=== PATIENT | female | born 1980 | race Caucasian/White ===

== ENCOUNTER 2016-10-11 19:35 | Emergency (ER) | payer SELFPAY ==
[~2016-10-11] VITALS: Ht 167.6 cm; Wt 122.5 kg
[~2016-10-11 19:35] MED LIST: ACET325T21 PO; BACL10TA PO; FERR325C PO; HYDR25TA9 PO; IBUP-1027 PO; LISI-334 PO; NAPR500T PO; TRAM-29 PO
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
[2016-10-11] MEDS ORDERED: HYDROCODONE/APAP 5/325MG TABLET. PO ONE (20:15)
[2016-10-11] MEDS ORDERED: CLONIDINE HCL 0.1 MG TABLET PO ONE (20:15)
[2016-10-11] MEDS ORDERED: TRAM1TAB49 PO (21:38)
[2016-10-11] MEDS ORDERED: HYDR12.58 PO (21:38)
[2016-10-11 22:04] VITALS: BP 179/95
--- NOTE | 2016-10-12 09:31 | RAD ---
Left knee with patella, 4 views, 10/11/2016: History: Fall, pain No fracture is identified. On the sunrise view there is mild lateral subluxation of the patella relative to the trochlear groove. There is moderate subcutaneous edema anteriorly. IMPRESSION: 1. Mild lateral subluxation of the patella. If knee pain persists, follow-up MR scanning may be useful for further evaluation. 2. No acute bony abnormality. Note: The findings were called to personnel in the [facility] ER at 9:28 AM on 10/12/2016.
== END 2016-10-11 22:04 | disposition home or self-care (01) ==
LOC: ER 19:35
DX: S83.92XA Sprain of unspecified site of left knee, initial encounter (principal); I10 Essential (primary) hypertension; Z98.51 Tubal ligation status; W18.39XA Other fall on same level, initial encounter; Y93.89 Activity, other specified; Y92.89 Other specified places as the place of occurrence of the external cause; Y99.8 Other external cause status
CPT/HCPCS: 73564; 99284

== ENCOUNTER 2017-10-30 22:57 | Emergency (ER) | payer OTHER, SELFPAY ==
[2017-10-30 23:58] LABS: ADD MAN DIFF? NO
[2017-10-31] LABS: BASO % 0 % (0-3); EOS # 0.2 x10^3/uL (0.0-0.7); EOS % 2 % (0-3); HEMOGLOBIN 12.6 g/dL (12.0-15.5); LYMPH # 1.4 x10^3/uL (1.0-4.8); LYMPH % 15 % (24-48); MEAN CORPUSCULAR HEMOGLOBIN 26 pg (25-35); MEAN CORPUSCULAR HGB CONC 33 g/dL (31-37); MEAN CORPUSCULAR VOLUME 78 fL (79-100); MONO # 0.5 x10^3/uL (0.0-1.1); MONO % 6 % (0-9); NEUT # 6.9 x10^3uL (1.8-7.7); NEUT % 77 % (31-73); PLATELET COUNT 268 x10^3/uL (140-400); RED BLOOD COUNT 4.84 x10^6/uL (3.50-5.40); RED CELL DISTRIBUTION WIDTH 14.7 % (11.5-14.5)
[2017-10-31 00:01] LABS: BILIRUBIN,URINE NEGATIVE (NEG); CLARITY,URINE CLOUDY; COLOR,URINE YELLOW; GLUCOSE,URINE NEGATIVE (NEG); NITRITE,URINE NEGATIVE (NEG); PROTEIN,URINE NEGATIVE (NEG-TRACE); UROBILINOGEN,URINE 0.2 mg/dL (0.2 mg/dL)
[2017-10-31] MEDS: diphenhydrAMINE 50 MG/ML VIAL IVP ×2 (00:08)
[2017-10-31] MEDS: PROCHLORPERAZINE 10 MG/2 ML VIAL. IV ×2 (00:09)
[2017-10-31] MEDS: LABETALOL 20 MG/4 ML DISP.SYRIN. IVP ×2 (00:09)
[2017-10-31 00:10] LABS: AMORPHOUS SEDIMENT,UR PRESENT /HPF; BACTERIA,URINE FEW /HPF (0-FEW); RBC,URINE 0 /HPF (0-2); SQUAMOUS EPITHELIAL CELL,UR MANY /LPF
[2017-10-31 00:12] LABS: ANION GAP 8 (6-14); BLOOD UREA NITROGEN 14 mg/dL (7-20); BUN/CREATININE RATIO 20 (6-20); CALCIUM 10.1 mg/dL (8.5-10.1); CARBON DIOXIDE 30 mmol/L (21-32); CHLORIDE 101 mmol/L (98-107); CREATININE 0.7 mg/dL (0.6-1.0); GFR 93.6; GLUCOSE 183 mg/dL (70-99); POTASSIUM 3.6 mmol/L (3.5-5.1); SODIUM 139 mmol/L (136-145)
[2017-10-31 00:17] LABS: ALBUMIN 3.7 g/dL (3.4-5.0); ALBUMIN/GLOBULIN RATIO 0.9 (1.0-1.7); ALK PHOS 79 U/L (46-116); ALT (SGPT) 23 U/L (14-59); AST (SGOT) 14 U/L (15-37); TOTAL BILIRUBIN 0.3 mg/dL (0.2-1.0); TOTAL PROTEIN 7.7 g/dL (6.4-8.2)
[2017-10-31 00:22] LABS: TROPONINI < 0.017 ng/mL (0.000-0.055)
[2017-11-01 09:14] LABS: URINE HCG POC HCG NEGATIVE (Negative)
== END 2017-10-31 02:05 | disposition home or self-care (01) ==
LOC: ER 22:57
DX: I10 Essential (primary) hypertension (principal); Z91.14 Patient's other noncompliance with medication regimen; Z98.51 Tubal ligation status
CPT/HCPCS: 36415; 70450; 80053; 81001; 81025; 84484; 85025; 87086; 93005; 96374; 96375; 99285-25; J0780; J1200; J3490

== ENCOUNTER 2017-11-03 23:52 | Inpatient (IN) | payer SELFPAY ==
[2017-11-04] MEDS: LABETALOL 20 MG/4 ML DISP.SYRIN. IVP ×2 (00:56→01:54)
[2017-11-04] MEDS: METOPROLOL TART IMMED RELEASE 50 MG TABLET. PO (01:00)
[2017-11-04 01:19] LABS: BARBITURATES NEG (NEG); BENZODIAZEPINES NEG (NEG); CANNABINOIDS NEG (NEG); COCAINE NEG (NEG); METHADONE NEG (NEG); OPIATES NEG (NEG); PHENCYCLIDINE NEG (NEG)
[2017-11-04 01:20] LABS: AMPHETAMINE/METHAMPHETAMINE NEG (NEG); ETHANOL, URINE NEG (NEG)
[2017-11-04 01:31] LABS: ADD MAN DIFF? NO
[2017-11-04 01:34] LABS: BASO # 0.1 x10^3/uL (0.0-0.2); BASO % 1 % (0-3); EOS # 0.2 x10^3/uL (0.0-0.7); EOS % 2 % (0-3); HEMATOCRIT 37.9 % (36.0-47.0); HEMOGLOBIN 12.6 g/dL (12.0-15.5); LYMPH # 2.1 x10^3/uL (1.0-4.8); LYMPH % 21 % (24-48); MEAN CORPUSCULAR HEMOGLOBIN 26 pg (25-35); MEAN CORPUSCULAR HGB CONC 33 g/dL (31-37); MEAN CORPUSCULAR VOLUME 79 fL (79-100); MONO # 0.7 x10^3/uL (0.0-1.1); MONO % 7 % (0-9); NEUT % 70 % (31-73); PLATELET COUNT 291 x10^3/uL (140-400); RED CELL DISTRIBUTION WIDTH 15.1 % (11.5-14.5)
[2017-11-04 01:45] LABS: INR 1.1 (0.8-1.1); PARTIAL THROMBOPLASTIN TIME 27 SEC (24-38); PROTHROMBIN TIME PATIENT 13.7 SEC (11.7-14.0)
[2017-11-04] MEDS ORDERED: ONDANSETRON PF 4 MG/2 ML VIAL. IV (01:45)
[2017-11-04] MEDS ORDERED: fentaNYL PF VIAL 100 MCG/2 ML VIAL IV (01:45)
[2017-11-04 01:51] LABS: ANION GAP 9 (6-14); BLOOD UREA NITROGEN 17 mg/dL (7-20); BUN/CREATININE RATIO 21 (6-20); CALCIUM 10.1 mg/dL (8.5-10.1); CARBON DIOXIDE 30 mmol/L (21-32); CHLORIDE 101 mmol/L (98-107); CREATININE 0.8 mg/dL (0.6-1.0); GFR 80.3; GLUCOSE 189 mg/dL (70-99); POTASSIUM 3.4 mmol/L (3.5-5.1); SODIUM 140 mmol/L (136-145)
[2017-11-04] MEDS: ASPIRIN ENTERIC COATED 325 MG TABLET.DR. PO (01:53)
[2017-11-04 01:56] LABS: ALBUMIN 3.7 g/dL (3.4-5.0); ALBUMIN/GLOBULIN RATIO 0.9 (1.0-1.7); ALK PHOS 76 U/L (46-116); ALT (SGPT) 24 U/L (14-59); AST (SGOT) 17 U/L (15-37); MAGNESIUM 2.2 mg/dL (1.8-2.4); TOTAL BILIRUBIN 0.1 mg/dL (0.2-1.0); TOTAL PROTEIN 7.8 g/dL (6.4-8.2)
[2017-11-04 01:59] LABS: ETHANOL < 10 mg/dL (0-10)
[2017-11-04 02:00] LABS: TROPONINI < 0.017 ng/mL (0.000-0.055)
[2017-11-04 02:02] LABS: NT-PRO BNP 12 pg/mL (0-124)
[2017-11-04] MEDS: POTASSIUM CHLORIDE 20 MEQ TABLET.ER. PO (02:43)
[2017-11-04] MEDS: LISINOPRIL 10 MG TABLET PO (09:35)
[2017-11-04] MEDS: hydroCHLOROthiazide 12.5 MG CAPSULE PO (09:35)
[2017-11-04] MEDS: WARFARIN 7.5 MG TABLET. PO (15:10)
[2017-11-04] MEDS: ANTI-COAG MONITOR BY PHARMACY. MC (15:19)
[2017-11-04] MEDS: ACETAMINOPHEN 325 MG TABLET. PO (21:21)
[2017-11-05 05:02] LABS: ADD MAN DIFF? NO
[2017-11-05 05:30] LABS: BASO % 0 % (0-3); EOS # 0.2 x10^3/uL (0.0-0.7); EOS % 3 % (0-3); HEMATOCRIT 38.5 % (36.0-47.0); HEMOGLOBIN 12.7 g/dL (12.0-15.5); LYMPH # 2.6 x10^3/uL (1.0-4.8); LYMPH % 29 % (24-48); MEAN CORPUSCULAR HEMOGLOBIN 26 pg (25-35); MEAN CORPUSCULAR HGB CONC 33 g/dL (31-37); MEAN CORPUSCULAR VOLUME 79 fL (79-100); MONO # 0.6 x10^3/uL (0.0-1.1); MONO % 7 % (0-9); NEUT # 5.4 x10^3uL (1.8-7.7); NEUT % 61 % (31-73); PLATELET COUNT 255 x10^3/uL (140-400); RED BLOOD COUNT 4.85 x10^6/uL (3.50-5.40); RED CELL DISTRIBUTION WIDTH 15.3 % (11.5-14.5); WHITE BLOOD COUNT 8.8 x10^3/uL (4.0-11.0)
[2017-11-05 05:59] LABS: ANION GAP 8 (6-14); BLOOD UREA NITROGEN 13 mg/dL (7-20); CARBON DIOXIDE 27 mmol/L (21-32); CHLORIDE 103 mmol/L (98-107); CREATININE 0.8 mg/dL (0.6-1.0); GFR 80.3; GLUCOSE 154 mg/dL (70-99); SODIUM 138 mmol/L (136-145)
[2017-11-05] MEDS: LISINOPRIL 10 MG TABLET PO (08:23)
[2017-11-05] MEDS: hydroCHLOROthiazide 12.5 MG CAPSULE PO (08:23)
[2017-11-05 09:52] LABS: INR 1.2 (0.8-1.1); PROTHROMBIN TIME PATIENT 14.1 SEC (11.7-14.0)
== END 2017-11-05 13:09 | disposition home or self-care (01) | DRG 300 ==
LOC: ER 23:52 → 6 SOUTH 11-04 01:34
DX: I82.622 Acute embolism and thrombosis of deep veins of left upper extremity (principal); I67.4 Hypertensive encephalopathy; Z68.42 Body mass index [BMI] 45.0-49.9, adult; E87.6 Hypokalemia; I10 Essential (primary) hypertension; R07.89 Other chest pain; M19.90 Unspecified osteoarthritis, unspecified site; E66.9 Obesity, unspecified; Z79.01 Long term (current) use of anticoagulants; Z82.49 Family history of ischemic heart disease and other diseases of the circulatory system; Z83.3 Family history of diabetes mellitus; Z98.51 Tubal ligation status
CPT/HCPCS: 36415; 70450; 80048; 80053; 80307; 83735; 83880; 84484; 85025; 85610; 85730; 93005; 93971; 96374; 96376; 99285; 99285-25; G0480; J1650; J3490

== ENCOUNTER 2018-02-19 15:32 | Emergency (ER) | payer OTHER ==
[2018-02-19] MEDS: DIPHTH,PERTUSS(ACELL),TET TOX 0.5 ML DISP.SYRIN. VAX IM (16:11)
== END 2018-02-19 16:39 | disposition home or self-care (01) ==
LOC: ER 15:32
DX: S61.306A Unspecified open wound of right little finger with damage to nail, initial encounter (principal); I10 Essential (primary) hypertension; Z86.718 Personal history of other venous thrombosis and embolism; W26.8XXA Contact with other sharp object(s), not elsewhere classified, initial encounter; Y93.89 Activity, other specified; Y92.89 Other specified places as the place of occurrence of the external cause; Y99.8 Other external cause status
CPT/HCPCS: 90471; 90715; 99283

== ENCOUNTER → 2018-11-14 | Outpatient (CLI) | payer OTHER ==
[2018-02-19 16:14] VITALS: BP 166/103
[~2018-11-14] MED LIST changes: +ENOX40DI SQ; +HYDR-2145 PO; +HYDR12.575 PO; +HYDR12.58 PO; -HYDR25TA9 PO; +LISI1TAB3 PO; +NAPR-683 PO; -NAPR500T PO; -TRAM-29 PO; +TRAM-48 PO; +TRAM1TAB56 PO; +WARF-78 PO
--- NOTE | 2018-11-14 13:21 | RAD ---
PA and lateral chest x-ray without comparison for right arm swelling. FINDINGS: Lungs are clear. Cardiomediastinum is grossly unremarkable. No significant soft tissue or osseous abnormalities. IMPRESSION: 1. No acute cardiopulmonary abnormality. Electronically signed by: Gary Chen MD (11/14/2018 1:18 PM) [id number]
--- NOTE | 2018-11-14 13:33 | RAD ---
Right upper extremity venous Doppler ultrasound History: Right arm swelling-HX of Left arm DVT Comparison: None. Procedure: Color flow Doppler, Doppler spectral analysis, and 2D images are obtained with and without compression in the jugular vein, subclavian vein, axillary vein, brachial vein, radial vein, ulnar vein, and basilic and cephalic veins. Findings: There is normal color flow, augmentation, and compressibility of all visualized vein segments. No evidence of deep venous thrombus is present. The radial and ulnar veins are not identified. IMPRESSION: No evidence of right upper extremity deep venous thrombosis. Electronically signed by: Tan Zavala MD (11/14/2018 1:30 PM) [id number]
== END | disposition home or self-care (01) ==
LOC: US 12:11
PROVIDERS: ATTEND Family Medicine
DX: M79.601 Pain in right arm (principal); M79.89 Other specified soft tissue disorders; Z86.718 Personal history of other venous thrombosis and embolism
CPT/HCPCS: 71046; 93971

== ENCOUNTER → 2020-07-30 | Outpatient (CLI) | payer OTHER ==
[2018-02-19 16:14] VITALS: BP 166/103
[~2020-07-30] MED LIST changes: +LISI1TAB23 PO; -LISI1TAB3 PO; -WARF-78 PO; +WARF5TAB2 PO
--- NOTE | 2020-07-30 10:15 | RAD ---
EXAM: Bilateral screening mammogram. HISTORY: 39-year-old female presents for screening mammography. TECHNIQUE: Full-field digital craniocaudal and mediolateral oblique views of both breasts are obtained for evaluation. Computer aided detection was applied. COMPARISON: There is no prior study for comparison. This exam serves as a new baseline mammogram. BREAST PARENCHYMAL DENSITY: Level B - Scattered fibroglandular densities. FINDINGS: There is a circumscribed nodular density within the 1:00 position of the left breast at mid to posterior depth measuring approximately 1.1 cm. There is no suspicious calcification or architectural distortion within either breast. IMPRESSION: BI-RADS Category 0: Incomplete. Additional imaging needed. RECOMMENDATION: Sonographic imaging of the left breast to assess a nodular density at the 1:00 position at mid to posterior depth is recommended. If your mammogram demonstrates that you have dense breast tissue, which could hide abnormalities, and if you have other risk factors for breast cancer that have been identified, you might benefit from supplemental screening tests that may be suggested by your ordering physician. Dense breast tissue, in and of itself, is a relatively common condition. This information is not provided to cause undue concern, but rather to raise your awareness and to promote discussion with your physician regarding the presence of other risk factors, in addition to dense breast tissue. A report of your mammography results will be sent to you and your physician. You should contact your physician if you have any questions or concerns regarding this report. Mammography is a sensitive method for finding small breast cancers, but it does not detect them all and is not a substitute for careful clinical examination. A negative mammogram does not negate a clinically suspicious finding and should not result in delay in biopsying a clinically suspicious abnormality. PQRS compliance statement - Patient information was entered into a reminder system with a target due date for the next mammogram. "Our facility is accredited by the [employer] Mammography Program." Electronically signed by: Shiloh Pulliam MD (07/30/2020 10:12 AM) [id number]
== END ==
LOC: MAMMO 09:38
PROVIDERS: ATTEND Family Medicine
DX: Z12.31 Encounter for screening mammogram for malignant neoplasm of breast (principal); N64.89 Other specified disorders of breast
CPT/HCPCS: 77067

== ENCOUNTER → 2020-08-10 | Outpatient (CLI) | payer OTHER ==
[2018-02-19 16:14] VITALS: BP 166/103
--- NOTE | 2020-08-10 10:42 | RAD ---
Examination: Limited left breast ultrasound. INDICATION: 40-year-old woman recalled from screening for mass in the upper outer left breast on baseline mammogram. COMPARISON: 07/30/2020 FINDINGS: Targeted ultrasound upper outer quadrant left breast identified at the 1:00 position 6 cm from the nipple a sonographically benign intramammary lymph node measuring 1.5 cm in length that correlates in size shape and position with the mammographic finding recalled from screening. No suspicious sonographic findings. Targeted ultrasound of the subareolar left breast and left axilla revealed no additional findings. IMPRESSION: Benign intramammary lymph node left breast. No evidence of malignancy. Recommend return to routine screening next due in one year. BI-RADS Category 2 Benign findings Patient entered into a reminder system with target due date for next mammogram.
== END ==
LOC: US 10:02
PROVIDERS: ATTEND Family Medicine
DX: R92.8 Other abnormal and inconclusive findings on diagnostic imaging of breast (principal)
CPT/HCPCS: 76641

== ENCOUNTER → 2020-11-10 | Outpatient (CLI) | payer OTHER ==
[2018-02-19 16:14] VITALS: BP 166/103
[~2020-11-10] MED LIST changes: -LISI-334 PO; +LISI20TA18 PO
--- NOTE | 2020-11-10 14:05 | KCIC ---
EXAM: Left knee, 3 views. HISTORY: Pain. COMPARISON: None. FINDINGS: 3 views of the left knee are obtained. There is medial compartment joint space narrowing an d tricompartmental spurring. There is trace joint fluid. No significant effusion is seen. There is no fracture. IMPRESSION: Mild medial compartment predominant tricompartmental osteoarthritis of the left knee. Electronically signed by: Shiloh Pulliam MD (11/10/2020 2:02 PM) [id number]
== END ==
LOC: KCIC 10:51
PROVIDERS: ATTEND Family Medicine
DX: M17.12 Unilateral primary osteoarthritis, left knee (principal)
CPT/HCPCS: 73562

== ENCOUNTER 2020-12-16 22:45 | Emergency (ER) | payer OTHER ==
[~2020-12-16] VITALS: Ht 167.6 cm; Wt 113.6 kg
--- NOTE | 2020-12-17 00:07 | ED.ADGEN ---
Past Medical History Past Medical History: Arthritis, DVT, Hypertension, Other Additional Past Medical Histor: headaches, OBESITY Past Surgical History: , Tubal ligation Smoking Status: Former Smoker Alcohol Use: None Drug Use: None General Adult EDM: Chief Complaint: KNEE INJURY HPI: HPI: Patient is a 40-year-old female who presents to the emergency room complaining of left leg pain. Patient has been having this pain for the last 2 months which is progressively gotten worse. She states that she did see her primary care physician about this who told her that she thought it was due to her varicose veins. Patient states that she called the vein clinic to get in but they cannot see her until January. She has had to leave work multiple times due to severe pain. She states that the pain is on the lateral side of her knee. It is worse when she gets up and moves around. She states that when she goes to work she has a lot of pain from being on her feet. She has tried Tylenol, Epson salt baths, IcyHot, ibuprofen. She has not had any relief. Review of Systems: Review of Systems: Complete ROS is negative unless otherwise documented in HPI Current Medications: Current Medications Medications (Trade) Dose Ordered Sig/Freddie Start Time Stop Time Status Last Admin Dose Admin Oxycodone/ Acetaminophen (Percocet 5/325) 1 tab 1X ONCE 12/17/20 00:15 12/17/20 00:16 DC 12/17/20 00:39 1 TAB Allergies: Allergies: Allergies Coded Allergies Type Severity Reaction Last Updated Verified No Known Drug Allergies 12/11/14 No Physical Exam: PE: General: Awake, alert, NAD. Well Nourished, well hydrated. Cooperative HEENT: Atraumatic, EOMI, PERRL, airway patent, moist oral mucosa Neck: Supple, trachea midline Respiratory: CTA bilaterally, normal effort, no wheezing/crackles CV: RRR, no murmur, cap refill <2 GI: Soft, nondistended, nontender, no masses MSK: Left leg: Several varicose veins without signs of ulceration. 2+ DP pulse, leg is not hot or cool to touch. Normal range of motion Skin: Warm, dry, intact Neuro: A&O x3, speech NL, sensory and motor grossly intact, no focal deficits Psych: Normal affect, normal mood, not suicidal or homicidal Current Patient Data: Vital Signs: Vital Signs Date Time Temp Pulse Resp B/P (MAP) Pulse Ox O2 Delivery O2 Flow Rate FiO2 12/17/20 00:39 99 Room Air 12/16/20 22:48 98.5 72 18 183/102 (129) 98.5 EKG: EKG: [] Heart Score: C/O Chest Pain: N/A Risk Factors: Risk Factors: DM, Current or recent (<one month) smoker, HTN, HLP, family history of CAD, obesity. Risk Scores: Score 0 - 3: 2.5% MACE over next 6 weeks - Discharge Home Score 4 - 6: 20.3% MACE over next 6 weeks - Admit for Clinical Observation Score 7 - 10: 72.7% MACE over next 6 weeks - Early Invasive Strategies Radiology/Procedures: Radiology/Procedures: [] Course & Med Decision Making: Course & Med Decision Making Pertinent Labs and Imaging studies reviewed. (See chart for details) Patient is a 40-year-old female who presents to the emergency room complaining of severe leg pain that has been ongoing for the last 2 months. Patient does have pain around the knee. This could be due to an orthopedic soft tissue injury. She did have a couple of falls over the last couple of months. Ultrasound will be done to rule out DVT and was normal. I have discussed with the patient that she should keep her appointment with vein clinic. We have also discussed that she should follow-up with orthopedic surgery. Patient's test results and vitals while in the ED were fully reviewed and discussed with the patient. Patient is stable and at this time does not need admission to the hospital. We have discussed strict return precautions and the importance of following up with their Primary Care Physician. Patient stated understanding and was given an opportunity to ask any questions. Patient is in agreement with plan. Dragon Disclaimer: Dragon Disclaimer: This electronic medical record was generated, in whole or in part, using a voice recognition dictation system. Departure Departure Impression: Primary Impression: Knee pain Additional Impression: Varicose vein of leg Disposition: 01 DC HOME SELF CARE/HOMELESS Condition: STABLE Referrals: GABRIELA ALVAREZ MD (PCP) LENA RAND MD Patient Instructions: Knee Pain, Varicose Veins Scripts Oxycodone/Apap 5-325 (PERCOCET 5-325 MG TABLET ) 1 Each Tablet 1 TAB PO PRN Q6HRS PRN for PAIN, #12 TAB 0 Refills Prov: RHIANNA CERON MD 12/17/20 Problem Qualifiers RHIANNA CERON MD Dec 17, 2020 00:07
[2020-12-17] MEDS ORDERED: oxyCODONE/APAP 5/325 1 TAB TABLET PO ONE (00:15)
--- NOTE | 2020-12-17 00:26 | RAD ---
Left lower extremity venous duplex Doppler ultrasound HISTORY: Left leg pain. FINDINGS: No DVT evident by grayscale imaging with compressibility, patent color Doppler blood flow a nd augmentation of blood flow the left common femoral vein, profunda femoral vein, superficial femora l vein and popliteal vein. No DVT evident with patent color flow the posterior tibial and peroneal ve ins in the calf. IMPRESSION: Negative left leg for DVT. Electronically signed by: Prashanth Miller MD (12/17/2020 12:23 AM) [facility]
[2020-12-17 00:30] VITALS: BP 168/95
[2020-12-17] MEDS ORDERED: OXYC1TAB15 PO (00:46)
== END 2020-12-17 00:55 | disposition home or self-care (01) ==
LOC: ER 22:45
DX: M25.562 Pain in left knee (principal); I83.92 Asymptomatic varicose veins of left lower extremity; M19.90 Unspecified osteoarthritis, unspecified site; I10 Essential (primary) hypertension; E66.9 Obesity, unspecified; Z87.891 Personal history of nicotine dependence; Z98.51 Tubal ligation status; Z98.890 Other specified postprocedural states; Z68.41 Body mass index [BMI] 40.0-44.9, adult
CPT/HCPCS: 93971; 99284